=== PATIENT | male | born 2000 ===

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

== ENCOUNTER → 2024-09-13 12:48 | Outpatient (ROUT) | payer SELFPAY | DX: R21 Rash and other nonspecific skin eruption (principal); L29.89 Other pruritus; L08.9 Local infection of the skin and subcutaneous tissue, unspecified | CPT/HCPCS: 87070; 87205; 87529; 87798 ==